=== PATIENT | female | born 1985 | race Asian ===

== ENCOUNTER 2023-12-26 08:00 | Outpatient (CLI) | payer MEDICAID, OTHER ==
[2023-12-26 16:58] LABS: BILIRUBIN,URINE NEGATIVE (NEGATIVE); GLUCOSE, URINE (UA) NEGATIVE (NEGATIVE); KETONES,URINE (UA) 15 mg/dL (NEGATIVE); LEUKOCYTE ESTERASE, URINE NEGATIVE (NEGATIVE); NITRITE,URINE NEGATIVE (NEGATIVE); OCCULT BLOOD,URINE MODERATE (NEGATIVE); PROTEIN,URINE NEGATIVE (NEGATIVE); UROBILINOGEN,URINE 0.2 (NORMAL) E.U./dL (NORMAL)
[2023-12-26 17:30] LABS: AMORPHOUS SEDIMENT,UR Few /LPF; BACTERIA,URINE None Seen /HPF (None Seen); CLARITY,URINE CLOUDY (CLEAR); SQUAMOUS EPITHELIAL CELL,UR FEW Squamous (<= Few); WBC,URINE 0-3 /HPF (0-5)
[2023-12-26 20:18] LABS: CHLAMYDIA TRACHOMATIS DNA NEGATIVE (NEGATIVE); NEISSERIA GONORRHOEAE DNA NEGATIVE (NEGATIVE); TRICHOMONAS VAGINALIS DNA NEGATIVE (NEGATIVE)
== END 2023-12-26 23:59 | disposition home or self-care (01) ==
LOC: LAB.WC 08:00
PROVIDERS: ATTEND Obstetrics & Gynecology
DX: Z34.80 Encounter for supervision of other normal pregnancy, unspecified trimester (principal); Z36.89 Encounter for other specified antenatal screening; Z3A.00 Weeks of gestation of pregnancy not specified
CPT/HCPCS: 81001; 87086; 87491; 87591; 87661

== ENCOUNTER 2024-01-18 07:09 | Outpatient (CLI) | payer MEDICAID ==
--- NOTE | 2024-01-18 16:17 | Ultrasound Report ---
PROCEDURE: OB Anatomy Scan INDICATIONS: SUPERVISON OF OUTSIDE/PRIOR DATING DATA: Last menstrual period (LMP): 08/25/2023. LMP-based estimated date of delivery (RAYSA): 05/31/2024. First dating scan (date and location): 01/18/2024. Estimated date of delivery (RAYSA) from first dating scan: 05/24/2024. TECHNIQUE: Real-time scanning was performed of the fetus, with image documentation and biometric measurements. Endovaginal scanning: Not performed. COMPARISON: None. FINDINGS: General: A single living intrauterine gestation is present. Presentation: Breech Placenta: Placental position is posterior/fundal, without previa. Amniotic fluid index: 13.9 cm, within normal limits for gestational age. heart rate: 150 beats per minute. Maternal cervical canal: 5.1 cm long; normal length is 2.5 cm or more. biometrics: Biparietal diameter: 5.2 cm, 21 weeks, 6 days, 86% Head circumference: 19.4 cm, 21 weeks, 4 days, 73% Abdominal circumference: 17.4 cm, 22 weeks, 2 days, 86% Femur length: 3.7 cm, 21 weeks, 6 days, 77% Estimated gestational age from initial scan: Not applicable Composite gestational age from present scan: 21 weeks, 6 days Estimated weight and percentile: 474.5 g, 96% Measurement variability in biometric dating: +/- 10 days from 12-20 weeks gestation, +/- 2 weeks from 20-30 weeks gestation, +/- 3 weeks at 30 weeks gestation or later. Anatomic survey: Neuro: Ventricles are normal at less than 10 mm. Cisterna magna is normal at 3-11 mm. Cerebellum i s normal in size and morphology. Nuchal skin fold: Normal at less than 6 mm between 14 and 20 weeks gestational age. Face: Nose and lips, facial profile are normal. Spine: The spine is not well visualized due to lie. Heart: 4-chambered heart is present, with normal ventricular outflow tracts. Diaphragm: Diaphragm is intact. Stomach: Left-sided stomach is present. Kidneys: No hydronephrosis. Normal is less than 5 mm in 2nd trimester, less than 7 mm in 3rd trimester. Cord: 3 vessel cord has orthotopic insertion. Bladder: Normal in size. Extremities: All 4 extremities are visualized. IMPRESSION: 1. Single live intrauterine gestation with a composite gestational age of 21 weeks, 6 days. 2. Estimated weight percentile is 96%. Developing macrosomia cannot be excluded. Please check d ates and consider close sonographic surveillance. 3. spine not well characterized. Short interval follow-up recommended. 4. No sonographic anatomic abnormalities visualized. Reviewed by: Maya Singh MD on 01/18/2024 4:16 PM PDT Approved by: Maya Singh MD on 01/18/2024 4:16 PM PDT Station ID: [id number]
== END 2024-01-18 07:10 | disposition home or self-care (01) ==
LOC: DI 07:09
PROVIDERS: ATTEND Obstetrics & Gynecology
DX: Z34.82 Encounter for supervision of other normal pregnancy, second trimester (principal); Z36.89 Encounter for other specified antenatal screening

== ENCOUNTER 2024-01-25 09:18 | Outpatient (CLI) | payer MEDICAID ==
[2024-01-25 10:34] LABS: BASOPHILS # (AUTO) 0.1 10^3/uL (0.0-0.1); BASOPHILS % (AUTO) 0.4 %; EOSINOPHILS # (AUTO) 0.4 10^3/uL (0.0-0.7); EOSINOPHILS % (AUTO) 2.7 %; HCT - HEMATOCRIT 33.9 % (37.0-47.0); HGB - HEMOGLOBIN 10.5 g/dL (12.0-16.0); LYMPHOCYTES # (AUTO) 1.8 10^3/uL (1.5-3.5); LYMPHOCYTES % (AUTO) 13.9 %; MEAN CORPUSCULAR HEMOGLOBIN 21.6 pg (27.0-31.0); MEAN CORPUSCULAR VOLUME 69.6 fL (81.0-99.0); MONOCYTES # (AUTO) 0.5 10^3/uL (0.0-1.0); MONOCYTES % (AUTO) 3.9 %; NEUTROPHILS # (AUTO) 10.1 10^3/uL (1.5-6.6); NEUTROPHILS % (AUTO) 78.1 %; PLT - PLATELET COUNT 188 10^3/uL (130-450); RED BLOOD COUNT 4.87 10^6/uL (4.20-5.40)
[2024-01-25 10:37] LABS: SLIDE REVIEW? Indicated
[2024-01-25 10:56] LABS: PLATELET ESTIMATE, MANUAL NORMAL (130-450,000) (NORMAL); PLATELET MORPHOLOGY NORMAL APPEARANCE (NORMAL); RBC MORPHOLOGY (MULTIPLE) 2+ MICROCYTOSIS (NORMAL)
[2024-01-26 05:14] LABS: HBsAG SCREEN Negative (Negative); HIV SCREEN 4TH GENERATION Non Reactive (Non Reactive)
[2024-01-26 08:10] LABS: RPR Non Reactive (Non Reactive)
[2024-01-26 10:44] LABS: VARICELLA-ZOSTER AB IGG 449 index (Immune >165)
[2024-01-26 23:09] LABS: HCV AB Non Reactive (Non Reactive)
== END 2024-01-25 09:19 | disposition home or self-care (01) ==
LOC: LAB 09:18
PROVIDERS: ATTEND Obstetrics & Gynecology
DX: Z34.80 Encounter for supervision of other normal pregnancy, unspecified trimester (principal); Z36.89 Encounter for other specified antenatal screening
CPT/HCPCS: 36415; 82565; 82950; 85025; 86592; 86762; 86787; 86803; 86850; 86900; 86901; 87340; 87389

== ENCOUNTER 2024-02-27 16:14 | Outpatient (CLI) | payer MEDICAID ==
--- NOTE | 2024-02-28 10:50 | Ultrasound Report ---
PROCEDURE: OB Follow up INDICATIONS: SUPERVISION OF OUTSIDE/PRIOR DATING DATA: Last menstrual period (LMP): 08/25/2023. LMP-based estimated date of delivery (RAYSA): 05/31/2024. First dating scan (date and location): 01/18/2024. Estimated date of delivery (RAYSA) from first dating scan: 05/24/2024. The below data below was generated using the ultrasound RAYSA of 05/24/2024 TECHNIQUE: Real-time scanning was performed of the fetus, with image documentation and biometric measurements. Endovaginal scanning: Not performed. COMPARISON: OB ultrasound 01/18/2024 FINDINGS: General: A single living intrauterine gestation is present. Presentation: Vertex Placenta: Placental position is posterior, without previa. Amniotic fluid index: 13.3 cm, within normal limits for gestational age. heart rate: 145 beats per minute. Maternal cervical canal: 4.7 cm long; normal length is 2.5 cm or more. biometrics: Biparietal diameter: 6.8 cm, 27 weeks 2 days, 29th percentile Head circumference: 26.2 cm, 28 weeks 4 days, 51st percentile Abdominal circumference: 24.2 cm, 28 weeks 3 days, 70th percentile Femur length: 5.6 cm, 29 weeks 3 days, 84th percentile Estimated gestational age from initial scan: 27 weeks 4 days Composite gestational age from present scan: 28 weeks 3 days Estimated weight and percentile: 1268 g, 81st percentile Measurement variability in biometric dating: +/- 10 days from 12-20 weeks gestation, +/- 2 weeks from 20-30 weeks gestation, +/- 3 weeks at 30 weeks gestation or more. Other: spine is better evaluated on the current exam and appears within normal limits without s igns of neural tube defect. IMPRESSION: 1.Single live intrauterine with appropriate interval growth. 2.Estimated weight is at the 81st percentile for ultrasound-based gestational age. 3.Normal appearance of the spine, which completes the anatomic survey. Reviewed by: Delfino Kwon MD on 02/28/2024 10:48 AM PDT Approved by: Delfino Kwon MD on 02/28/2024 10:48 AM PDT Station ID: [id number]
== END 2024-02-27 16:15 | disposition home or self-care (01) ==
LOC: DI 16:14
PROVIDERS: ATTEND Obstetrics & Gynecology
DX: O09.523 Supervision of elderly multigravida, third trimester (principal); Z3A.28 28 weeks gestation of pregnancy

== ENCOUNTER 2024-04-16 11:00 | Outpatient (CLI) | payer MEDICAID ==
[2024-04-16 11:15] LABS: HCT - HEMATOCRIT 33.6 % (37.0-47.0); HGB - HEMOGLOBIN 10.3 g/dL (12.0-16.0); MEAN CORPUSCULAR HEMOGLOBIN 21.3 pg (27.0-31.0); MEAN CORPUSCULAR HGB CONC 30.7 g/dL (32.0-36.0); MEAN CORPUSCULAR VOLUME 69.4 fL (81.0-99.0); PLT - PLATELET COUNT 193 10^3/uL (130-450); RED BLOOD COUNT 4.84 10^6/uL (4.20-5.40); RED CELL DISTRIBUTION WIDTH 15.1 % (12.0-15.0); WHITE BLOOD COUNT 10.7 x10^3/uL (4.8-10.8)
[2024-04-16 11:25] LABS: ALBUMIN 3.2 g/dL (3.2-5.5); ALBUMIN/GLOBULIN RATIO 1.1 (1.0-2.2); BILIRUBIN,TOTAL 0.3 mg/dL (0.2-1.0); CALCIUM 8.7 mg/dL (8.5-10.3); CREATININE 0.6 mg/dL (0.6-1.3); TOTAL PROTEIN 6.2 g/dL (6.4-8.9)
[2024-04-16 16:10] LABS: CREATININE,URINE 209.2 mg/dL; PROTEIN/CREATININE RATIO,URINE 0.1 (<=0.2)
== END 2024-04-16 11:01 | disposition home or self-care (01) ==
LOC: LAB 11:00
PROVIDERS: ATTEND Obstetrics & Gynecology
DX: R03.0 Elevated blood-pressure reading, without diagnosis of hypertension (principal)
CPT/HCPCS: 36415; 80053; 82570; 84156; 85027

== ENCOUNTER 2024-04-26 12:07 | Outpatient (CLI) | payer MEDICAID ==
--- NOTE | 2024-04-26 14:48 | Ultrasound Report ---
PROCEDURE: OB Follow up INDICATIONS: UTERINE SIZE DATE DISCREPANCY OUTSIDE/PRIOR DATING DATA: Last menstrual period (LMP): 08/25/2023. LMP-based estimated date of delivery (RAYSA): 05/31/2024. First dating scan (date and location): 01/18/2024. Estimated date of delivery (RAYSA) from first dating scan: 05/24/2024. The below data below was generated using the ultrasound RAYSA of 05/24/2024 TECHNIQUE: Real-time scanning was performed of the fetus, with image documentation and biometric measurements. Endovaginal scanning: Not performed. COMPARISON: 02/27/2024 FINDINGS: General: A single living intrauterine gestation is present. Presentation: Vertex Placenta: Placental position is posterior, without previa. Amniotic fluid index: 12.5 cm, 36th percentile for gestational age. heart rate: 144 beats per minute. Maternal cervical canal: 4.6 cm long; normal length is 2.5 cm or more. biometrics: Biparietal diameter: 8.61 cm, 34 weeks 5 days, 22.6 percentile Head circumference: 32.3 cm, 36 weeks 4 days, 31.9 percentile Abdominal circumference: 31.6 cm, 35 weeks 4 days, 46.8 percentile Femur length: 7.09 cm, 36 weeks 2 days, 54.6 percentile Estimated gestational age from initial scan: 36 weeks 0 days Composite gestational age from present scan: 35 weeks 6 days Estimated weight and percentile: 2763.8 g, 44.5 percentile Measurement variability in biometric dating: +/- 10 days from 12-20 weeks gestation, +/- 2 weeks from 20-30 weeks gestation, +/- 3 weeks at 30 weeks gestation or more. Other: Not applicable. IMPRESSION: Single living intrauterine at 36 weeks 0 days, RAYSA of 05/24/2024. Estimated weight of 2763.8 g, 44.5 percentile. SAAD of 12.5 cm. Reviewed by: Enrique Albright MD on 04/26/2024 2:46 PM PDT Approved by: Enrique Albright MD on 04/26/2024 2:46 PM PDT Station ID: [id number]
== END 2024-04-26 12:08 | disposition home or self-care (01) ==
LOC: DI 12:07
PROVIDERS: ATTEND Obstetrics & Gynecology
DX: O26.843 Uterine size-date discrepancy, third trimester (principal); Z3A.36 36 weeks gestation of pregnancy

== ENCOUNTER 2024-05-02 08:00 | Outpatient (CLI) | payer MEDICAID | END 2024-05-02 23:59 | disposition home or self-care (01) | LOC: LAB.WC 08:00 | PROVIDERS: ATTEND Obstetrics & Gynecology | DX: Z36.85 Encounter for antenatal screening for Streptococcus B (principal) | CPT/HCPCS: 87797 ==

== ENCOUNTER 2024-05-26 13:02 | Inpatient (IN) | payer MEDICAID ==
[2024-05-26] MEDS ORDERED: ONDANSETRON 4 MG/2 ML VIAL IVP PRN (13:45)
[2024-05-26] MEDS ORDERED: NIFEdipine 10 MG CAPSULE PO PRN (13:45)
[2024-05-26] MEDS ORDERED: hydrALAZINE INJ 20 MG/ML VIAL IVP PRN ×2 (13:45)
[2024-05-26] MEDS ORDERED: lidocaine 1% 20 ML MDV ID PRN (13:45)
[2024-05-26] MEDS ORDERED: TRANEXAMIC ACID IN NACL 1,000 MG/100 ML BAG IV PRN (13:45)
[2024-05-26] MEDS ORDERED: ONDANSETRON ODT 4 MG TABLET PO PRN (13:45)
[2024-05-26] MEDS ORDERED: miSOPROStoL 200 MCG TABLET PR PRN (13:45)
[2024-05-26] MEDS ORDERED: fentaNYL 100 MCG/2 ML VIAL IVP PRN (13:45)
[2024-05-26] MEDS ORDERED: OXYTOCIN 10 UNIT/ML VIAL IM PRN (13:45)
[2024-05-26] MEDS ORDERED: miSOPROStoL 200 MCG TABLET BC PRN (13:45)
[2024-05-26] MEDS ORDERED: SODIUM CHLORIDE FLUSH 0.9% 10 ML SYRINGE IVP PRN (13:45)
[2024-05-26] MEDS ORDERED: METHYLERGONOVINE 0.2 MG/ML VIAL IM PRN (13:45)
[2024-05-26] MEDS ORDERED: CALCIUM CARBONATE CHEW 500 MG TABLET PO PRN (13:45)
[2024-05-26] MEDS ORDERED: TERBUTALINE 1 MG/ML VIAL SUBQ PRN (13:45)
[2024-05-26] MEDS ORDERED: CARBOPROST TROMETHAMINE 250 MCG/ML VIAL IM PRN (13:45)
[2024-05-26] MEDS ORDERED: LABETALOL 20 MG/4 ML SYRINGE IVP PRN ×3 (13:45)
[2024-05-26] MEDS ORDERED: SODIUM CHLORIDE FLUSH 0.9% 10 ML SYRINGE IVP SCH (14:00)
[2024-05-26 14:30] LABS: BASOPHILS # (AUTO) 0.1 10^3/uL (0.0-0.1); BASOPHILS % (AUTO) 0.4 %; EOSINOPHILS # (AUTO) 0.2 10^3/uL (0.0-0.7); EOSINOPHILS % (AUTO) 1.2 %; HGB - HEMOGLOBIN 9.9 g/dL (12.0-16.0); LYMPHOCYTES # (AUTO) 1.7 10^3/uL (1.5-3.5); LYMPHOCYTES % (AUTO) 12.6 %; MEAN CORPUSCULAR HEMOGLOBIN 21.5 pg (27.0-31.0); MEAN CORPUSCULAR HGB CONC 30.9 g/dL (32.0-36.0); MEAN CORPUSCULAR VOLUME 69.6 fL (81.0-99.0); MONOCYTES # (AUTO) 0.8 10^3/uL (0.0-1.0); MONOCYTES % (AUTO) 5.6 %; NEUTROPHILS # (AUTO) 10.8 10^3/uL (1.5-6.6); NEUTROPHILS % (AUTO) 79.6 %; PLT - PLATELET COUNT 159 10^3/uL (130-450); RED CELL DISTRIBUTION WIDTH 15.5 % (12.0-15.0); WHITE BLOOD COUNT 13.5 x10^3/uL (4.8-10.8)
[2024-05-26 14:41] LABS: ALBUMIN 3.3 g/dL (3.2-5.5); ALBUMIN/GLOBULIN RATIO 1.4 (1.0-2.2); BILIRUBIN,TOTAL 0.2 mg/dL (0.2-1.0); CALCIUM 8.5 mg/dL (8.5-10.3); CREATININE 0.6 mg/dL (0.6-1.3); POTASSIUM 3.5 mmol/L (3.5-4.5); TOTAL PROTEIN 5.7 g/dL (6.4-8.9)
--- NOTE | 2024-05-26 15:18 | HISTORY & PHYSICAL EXAMINATION ---
Admit History - Visit Reason Visit Reason: Membranes rupture - Smoking Status: Never smoker - Other Maternal History Other Maternal History: HPI: Candi is a 39 yo at 39w2d who presents with SROM. She reports big gush of fluid around 11:50 AM while she was doing the dishes. [place] a pop and then a gush with + dark green staining. Reports after that she started having more painful contractions, but then they have since spaced out. Denies VB. Reports good FM. Denies ABRAHAM, vision changes, upper abdominal pain. Reports some LE swelling. She had a growth US 04/26, EFW 2763g, 44%tile, SAAD 12.5. flowsheet, copied from last visit in [place]: 39 yo LMP: 08/25/2023 RAYSA by LMP: 05/31/2024 US:12/25 bedside 18+4 Final RAYSA: 05/31/2024 - obese, prepreg BMI 38 - AMA. did not get on ASA - Mild range BPs x 2 @ 33wk - NSTs ordered to start at 37 weeks Anemia of . Taking iron Excessive weight gain in : -EFW ordered Pre- Weight: 205 BMI: 38.69 Blood type: A+ Antibody: Negative CBC: PLT 188 HCT 33.9 HGB 10.5 RUB: Immune VZV: Immune HBsAg: Negative HepC: NR RPR/AB-EIA: NR HIV: NR PAP: 06/2020 normal per pt GC/CT: negative HSV: denies Genetic testing: Did not have drawn Covid:Never Flu: no FAS: spine not well visualized; repeat normal. Placenta: posterior; no previa Cord: 3VC SAAD: WNL EFW: 474g 96%ile 50gm OGCT: EARLY 181( at 21wks); dexcom 3HR GTT: did 10 d of Dexcom and all normal but one. 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 Denies h/o HSV. Social Hx: Denies alcohol, tobacco, drug use during Family Hx: reviewed in record, noncontributory Allergies: sulfa, codeine Meds: PNV PE: VS reviewed Gen: NAD Chest: non labored respirations Abd: gravid, non tender, EFW 3600-3800g. 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: + meconium staining noted on peripad Ext: 1+ LE edema SVE: per RN exam in triage with gross meconium Bedside US performed, cephalic presentation confirmed monitoring: FHTs: 130s bpm baseline, + accel, small intermittent variable decelerations, mod variability [place]: q 6-8 min Cat 2, overall reassuring Labs: CMP reviewed, CBC pending A/P: 39 yo at 39w2d presenting with SROM with + meconium: - GBS neg - Rh+ - Rubella immune - Varicella immune - Desires sterilization - BMI 40 - Gestational anemia - AMA - Admit for labor management - Discussed repeat SVE around 5pm, consider pitocin augmentation if unchanged - Pain management per patient request, she is undecided about epidural - She confirmed desire today for permanent sterilization in the setting that delivery is required. [facility] consents were previously signed in clinic. Boni Camarillo MD - [facility] Current EDU 05/31/24 Gestation 39 Weeks and 2 Days 6 Vital Signs Temperature 98.3 F 05/26/24 13:12 Heart Rate 64 05/26/24 13:12 Respiratory Rate 16 05/26/24 13:12 Blood Pressure 138/76 H 05/26/24 13:12 Temperature 208.9 F H 05/26/24 14:10 Heart Rate 64 05/26/24 13:12 Respiratory Rate 16 05/26/24 13:12 Blood Pressure 138/76 H 05/26/24 13:12 O2 Saturation If not protocol: Oxygen Flow, liters/minute Physical - Abdominal Exam Vital Signs: Temp Pulse Resp BP Pulse Ox O2 Flow Rate 208.9 F H 64 16 138/76 H 05/26/24 14:10 05/26/24 13:12 05/26/24 13:12 05/26/24 13:12 Plan for Labor - Plan For Labor I expect patient to be DC'd or transferred within 96 hours.: Yes
[2024-05-26] MEDS ORDERED: ROPIVACAINE 0.2% 200 MG/100 ML BAG EP ONE (15:44)
[2024-05-26] MEDS ORDERED: LIDOCAINE 2%-EPI 1:100000 20 ML MDV ONE (15:44)
[2024-05-26 15:52] LABS: PLATELET ESTIMATE, MANUAL NORMAL (130-450,000) (NORMAL); PLATELET MORPHOLOGY NORMAL APPEARANCE (NORMAL); SLIDE REVIEW? Indicated
[2024-05-26] MEDS: LACTATED RINGERS 1,000 ML IV PRN (15:55)
[2024-05-26] MEDS ORDERED: SODIUM CHLORIDE 0.9% 10 ML VIAL IVP ONE (16:10)
[2024-05-26] MEDS ORDERED: fentaNYL 100 MCG/2 ML VIAL ONE (16:10)
[2024-05-26] MEDS ORDERED: LIDOCAINE-PF 2% 10 ML AMP SUBQ ONE (16:11)
[2024-05-26] MEDS ORDERED: ROPIVACAINE 0.2% 200 MG/100 ML BAG EP PRN (16:21)
[2024-05-26] MEDS ORDERED: NALOXONE 0.4 MG/ML VIAL IVP PRN (16:21)
[2024-05-26] MEDS ORDERED: ePHEDrine 50 MG/ML VIAL IVP PRN (16:21)
--- NOTE | 2024-05-26 16:21 | ANESTHESIA ---
Pre-Anesthesia VS, & Labs - Diagnosis active labor - Procedure vaginal delivery Vital Signs: Temp Pulse Resp BP Pulse Ox O2 Flow Rate 36.7 C 67 18 138/76 H 100 05/26/24 15:24 05/26/24 15:24 05/26/24 15:24 05/26/24 15:24 05/26/24 15:24 Height: 5 ft 3 in Weight (kg): 104.326 kg Body Mass Index: 40.7 BMI Classification: Morbidly Obese - NPO Last Fluid Intake: clear liquids - Is Patient ?: Yes - Lab Results Current Lab Results: Laboratory Tests 05/26/24 14:04: Sodium 136, Potassium 3.5, Chloride 107, Carbon Dioxide 20 L, Anion Gap 9.0, BUN 9, Creatinine 0.6, Estimated GFR (MDRD) 112, Glucose 106 H, Calcium 8.5, Total Bilirubin 0.2, AST 12, ALT 8 L, Alkaline Phosphatase 107, Total Protein 5.7 L, Albumin 3.3, Globulin 2.4, Albumin/Globulin Ratio 1.4 05/26/24 14:04: WBC 13.5 H, RBC 4.60, Hgb 9.9 L, Hct 32.0 L, MCV 69.6 L, MCH 21.5 L, MCHC 30.9 L, RDW 15.5 H, Plt Count 159, MPV TNP, Neut # (Auto) 10.8 H, Lymph # (Auto) 1.7, Morgan # (Auto) 0.8, Eos # (Auto) 0.2, Baso # (Auto) 0.1, Absolute Nucleated RBC 0.00, Nucleated RBC % 0.0, Manual Slide Review Indicated, Platelet Estimate NORMAL (130-450,000), Platelet Morphology NORMAL APPEARANCE, RBC Morph Micro Appear 1+ HYPOCHROMASIA 05/26/24 14:04: Blood Type A POSITIVE, Antibody Screen NEGATIVE Lab results reviewed: Yes Fish Bones: 05/26/24 14:04 05/26/24 14:04 Home Medications and Allergies Active Medications Acetaminophen (Acetaminophen 500 Mg Tablet) 1,000 mg PO Q8HR PRN PRN Reason: Mild Pain or Fever>38C(100.4F) Calcium Carbonate/Glycine (Calcium Carbonate Chew 500 Mg Tablet) 1,000 mg PO Q6HR PRN PRN Reason: Heartburn Carboprost Tromethamine (Carboprost Tromethamine 250 Mcg/Ml Vial) 250 mcg IM .ONCE PRN PRN Reason: Hemorrhage Fentanyl (Fentanyl 100 Mcg/2 Ml Vial) 50 mcg IVP Q1H PRN PRN Reason: Severe Pain (score 7-10) Hydralazine HCl (Hydralazine Inj 20 Mg/Ml Vial) 10 mg IVP .ONCE PRN; Protocol PRN Reason: SBP> or= 160 OR DBP> or= 110 Hydralazine HCl (Hydralazine Inj 20 Mg/Ml Vial) 5 - 10 mg IVP Q20M PRN; Protocol PRN Reason: SBP> or= 160 OR DBP> or= 110 Lactated Ringer's (Lr) 500 mls @ 999 mls/hr IV PRN PRN PRN Reason: Abdominal Pain Last Admin: 05/26/24 15:55 Dose: 125 mls/hr Oxytocin/Sodium Chloride (Pitocin/Sodium Chloride) 500 mls @ 999 mls/hr IV PRN PRN; Protocol PRN Reason: POST- HEMORR PREVENTION Tranexamic Acid (Tranexamic 1,000 Mg/100ml-Nacl) 1,000 mg in 100 mls @ 600 mls/hr IV Q30M PRN PRN Reason: EBL >1200mL and within 3hr Labetalol HCl (Labetalol 20 Mg/4 Ml Syringe) 20 mg IVP .ONCE PRN; Protocol PRN Reason: SBP> or= 160 OR DBP> or= 110 Labetalol HCl (Labetalol 20 Mg/4 Ml Syringe) 20 - 80 mg IVP Q10M PRN; Protocol PRN Reason: SBP> or= 160 OR DBP> or= 110 Labetalol HCl (Labetalol 20 Mg/4 Ml Syringe) 20 - 40 mg IVP Q10M PRN; Protocol PRN Reason: SBP> or= 160 OR DBP> or= 110 Lidocaine HCl (Lidocaine 1% 20 Ml Mdv) 20 ml ID .ONCE PRN PRN Reason: PERINEAL REPAIR Stop: 05/29/24 13:45 Methylergonovine Maleate (Methylergonovine 0.2 Mg/Ml Vial) 0.2 mg IM .ONCE PRN PRN Reason: Hemorrhage Misoprostol (Misoprostol 200 Mcg Tablet) 600 mcg BC .ONCE PRN PRN Reason: Hemorrhage Misoprostol (Misoprostol 200 Mcg Tablet) 800 mcg WA .ONCE PRN PRN Reason: Hemorrhage Nifedipine (Nifedipine 10 Mg Capsule) 10 - 20 mg PO Q20M PRN; Protocol PRN Reason: SBP> or= 160 OR DBP> or= 110 Ondansetron HCl (Ondansetron Odt 4 Mg Tablet) 4 mg PO Q4HR PRN PRN Reason: Nausea / Vomiting Ondansetron HCl (Ondansetron 4 Mg/2 Ml Vial) 4 mg IVP PRN PRN PRN Reason: Nausea / Vomiting Oxytocin (Oxytocin 10 Unit/Ml Vial) 10 unit IM .ONCE PRN PRN Reason: Step One if no IV access. Sodium Chloride (Sodium Chloride Flush 0.9% 10 Ml Syringe) 10 ml IVP Q8H GINGER Sodium Chloride (Sodium Chloride Flush 0.9% 10 Ml Syringe) 10 ml IVP PRN PRN PRN Reason: NEEDED PER PROVIDER ORDERS Terbutaline Sulfate (Terbutaline 1 Mg/Ml Vial) 0.25 mg SUBQ .ONCE PRN PRN Reason: Tachystole Allergies/Adverse Reactions: Allergies Allergy/AdvReac Type Severity Reaction Status Date / Time Sulfa (Sulfonamide Allergy Hives Verified 05/26/24 16:20 Antibiotics) Anes History & Medical History - Anesthetic History Anesthesia Complications: reports: No previous complications - Medical History Cardiovascular: reports: None Pulmonary: reports: None Gastrointestinal: reports: None Urinary: reports: None Neuro: reports: None Musculoskeletal: reports: None Endocrine/Autoimmune: reports: None Blood Disorders: reports: None Skin: reports: None Smoking Status: Never smoker Psychosocial: reports: No issues indicated History of Cancer?: No - Surgical History General: reports: Cholecystectomy Exam General: Alert, Oriented x3, Cooperative, No acute distress Dental: WNL Mouth Openin Fingerbreadth Neck Mobility: Normal Mallampati classification: III Thyromental Distance: 4-6 cm Mental/Cognitive Status: Alert/Oriented X3, Normal for patient Plan Anesthesia Type: Epidural Consent for Procedure(s) Verified and Reviewed: Yes Code Status: Attempt Resuscitation ASA classification: 2-Mild systemic disease Is this case an emergency?: No
[2024-05-26] MEDS: OXYTOCIN/SODIUM CHLORIDE 500 ML IV PRN (21:50)
[2024-05-26] MEDS ORDERED: oxyCODONE 5 MG TABLET PO PRN (22:06)
[2024-05-26] MEDS ORDERED: MAGNESIUM HYDROXIDE 2,400 MG/30 ML UDC PO PRN (22:06)
[2024-05-26] MEDS ORDERED: WITCH HAZEL/GLYCERIN 1 PAD TOP PRN (22:06)
[2024-05-26] MEDS ORDERED: diphenhydrAMINE 25 MG CAPSULE PO PRN (22:06)
[2024-05-26] MEDS ORDERED: HYDROCORTISONE 1% CREAM 28 GM TUBE PR PRN (22:06)
--- NOTE | 2024-05-26 22:27 | DELIVERY NOTE ---
Delivery Note - Infant Delivery Method Infant Delivery Method: positive: Spontaneous vaginal delivery - Presentation Presentation: positive: Vertex, [place] - right occiput anterior - Nuchal Cord Nuchal Cord: positive: Present - Anesthetic Anesthetic Type: - Amniotic Fluid Description Amniotic Fluid Description: positive: Moderate meconium - Episiotomy Type Episiotomy Type: positive: None - Laceration Laceration: positive: None - Delivery Outcome Delivery Outcome: positive: Livebirth - [place] : positive: Placed in direct skin contact with mother, Stimulated, Warmed - Placenta Placenta: positive: Intact, Spontaneous - Estimated Blood Loss Estimated Blood Loss (in cc): 50 - Post Delivery Events Post Delivery Events: positive: No post delivery events - Delivery Comments (Free Text/Narrative) Delivery Comments (Free Text/Narrative): I was called to the room for patient complete and ready to push. The anterior shoulder delivered easily with maternal effort and gentle downward pressure, followed by the remainder of the body. The was placed on Candi's chest. After 60 seconds, the cord was clamped and then cut by her partner. Cord blood was collected. Pitocin was started. The placenta was delivered intact. Good uterine tone and perineal hemostasis noted. Boni Camarillo MD
[2024-05-26] MEDS ORDERED: LACTATED RINGERS 1,000 ML IV SCH (23:00)
[2024-05-26] MEDS: IBUPROFEN 600 MG TABLET PO SCH (23:58)
[2024-05-27] MEDS ORDERED: LACTATED RINGERS 1,000 ML IV SCH (07:00)
--- NOTE | 2024-05-27 07:29 | PHARMACY PROGRESS NOTE ---
- Best Possible Medication History Admit Date and Time: 05/26/24 4372 Processed by: Pharmacy Medications reviewed in ED?: No Medication History completed: Yes Patient Interview: Pt unable to participate Secondary Source(s): Caregiver (CURRENT NURSE THAT HAS DISCUSSED MEDICATIONS WITH PATIENT), Physician records, Insurance records As the person ultimately responsible for medication therapy, providers are able to order a medication from an existing home medication list in [facility] via the "Reconcile Routine" prior to Confirmation of that medication by customer support analyst. Such practice is discouraged except when the physician, in their clinical judgment, deems that a medical need exists for a medication without regard to previous use.
[2024-05-27] MEDS: ACETAMINOPHEN 500 MG TABLET PO PRN (11:05)
[2024-05-27] MEDS: DOCUSATE SODIUM 100 MG CAPSULE PO SCH (11:05)
--- NOTE | 2024-05-27 17:22 | PROVIDER PROGRESS NOTE ---
Subjective - Prog Note Date Prog Note Date: 05/27/24 Prog Note Time: 17:19 - Subjective Subjective: S: She reports that she is feeling well Pain is well controlled with current medications. She is ambulating without difficulty. She is tolerating a normal diet. She is voiding without difficulty Lochia reported as light. Baby is at bedside, doing well. She is breast feeding. O: Vitals reviewed. GENERAL: NAD Resp: non-labored respirations ABDOMEN: Soft, non tender, fundus firm. EXT: 2+ LE edema. No evidence of DVT. A/P: PPD #1 sp , doing well. Continue routine care. Plan for discharge home tomorrow. Boni Tom MD Objective - Vital Signs/Intake & Output Vital Signs: Vital Signs x48h Temp Pulse Resp BP Pulse Ox 05/27/24 16:08 98.2 F 69 16 135/73 H 98 Intake & Output: Intake & Output 05/24/24 05/25/24 05/26/24 05/27/24 23:59 23:59 23:59 23:59 Intake Total 500 Output Total 200 Balance -200 500 - Lab Results Fish Bones: 05/26/24 14:04 05/26/24 14:04
--- NOTE | 2024-05-28 08:04 | Discharge Plan ---
Discharge Plan Problem Reviewed?: Yes Disposition: Home, Self Care Condition: Good Diet: Regular Activity Restrictions: Additional Comments Shower Restrictions: No Instruction Topics: Vaginal After, Depression No Smoking: If you smoke, Please STOP! Call for help. Follow-up with: Raza Cortez MD [Provider Admit Priv/Credential] -
--- NOTE | 2024-05-28 08:07 | DISCHARGE SUMMARY ---
Discharge Summary Admit Date: 05/26/24 Discharge Date: 05/28/24 Discharging Provider: Raza Cortez Code Status: Attempt Resuscitation Condition at Discharge: Good Discharge Disposition: 01 Home, Self Care - DIAGNOSES Admission Diagnoses: Term labor/SROM BMI 40 Advanced general age Discharge Diagnoses with Status of Each Condition: Term labor/SROM BMI 40 Advanced general age Status post spontaneous vaginal delivery Delivery outcome live aragon - HPI History of Present Illness: Subjective Patient reports she is doing well. Lochia appropriate. Denies heavy bleeding. Ambulating. Pelvic and abdominal pain well-controlled. Tolerating oral intake. Diet: Regular. Voiding without difficulty. Passing flatus. Denies BM. Patient is bonding with baby in room Breast feeding going well. Denies feeling lightheaded, dizzy or excessively fatigued. Control: Desires permanent sterility Objective General: Alert, oriented, no apparent distress. Cardiovascular: Regular rate. Regular rhythm. Lungs: No increased work of breathing. Abdomen: Uterus firm. Below umbilicus. No guarding or rebound. Extremities: No pain on palpation. No cords palpated. Distal pulses intact. - HOSPITAL COURSE Hospital Course: Patient was admitted at 39 weeks gestation with rupture of membranes. She was master every 6 to 8 minutes. She progressed on her own and had a spontaneous vaginal delivery with no lacerations. There was some meconium. course was uneventful. Patient and her were discharged in good condition on day 2. Plan for interval tubal ligation. - ALLERGIES Allergies/Adverse Reactions: Allergies Allergy/AdvReac Type Severity Reaction Status Date / Time Sulfa (Sulfonamide Allergy Hives Verified 05/26/24 16:20 Antibiotics) - MEDICATIONS Home Medications: Ambulatory Orders Medication Instructions Recorded Confirmed 168/Iron/Folic/Omega3 1 each PO DAILY 05/27/24 05/27/24 [One-A-Day -1 Softgel] - LABS Result Diagrams: 05/26/24 14:04 05/26/24 14:04 - FOLLOW UP Follow Up: With [facility] women's care in 1 to 2 weeks - TIME SPENT Time Spent in Discharge (Minutes): 20
[2024-05-28 11:45] VITALS: BP 146/87; O2SAT 98
--- NOTE | 2024-05-28 13:28 | Labor Flowsheet ---
Labor Flowsheet Datetime Report Generated by CPN: 05/28/2024 13:28 Datetime: 05/28/2024 11:43 VITAL SIGNS NBP Sys/Rhonda/Mean (mmHg): 146 : 87 : 99 Pulse: 77 Datetime: 05/28/2024 04:10 SpO2 (%): 98 Datetime: 05/27/2024 00:01 Stage of : Recovery PAIN Pain Scale: 0 Datetime: 05/26/2024 23:46 Respirations: 18 Datetime: 05/26/2024 22:41 Membranes Ruptured Date/Time: 05/26/2024 11:53 Membranes Rupture Method: Spontaneous Amniotic Fluid Color: Light Meconium Amniotic Fluid Amount: Moderate Amniotic Fluid Odor: Normal Datetime: 05/26/2024:51 Temperature (C): 36.6 Temperature Route: Oral Datetime: 05/26/2024 21:50 LaborFlag: Labor Datetime: 05/26/2024 21:45 Comments: viable delivery of baby girl Datetime: 05/26/2024 21:44 Patient Care Comments: pt pushing Datetime: 05/26/2024 21:40 Communication Comments: Provider at bedside Datetime: 05/26/2024 21:30 UTERINE ACTIVITY Monitor Mode: External Frequency (min): 1-2min Quality: Mild Duration (sec): 40-60sec Pattern: Normal: <= 5 Contractions in 10 Minutes Resting Tone (Palpate): Relaxed ASSESSMENT A Monitor Mode: Telemetry FHR Baseline Rate : 125 Variability: Moderate 6-25 bpm Accelerations: None Decelerations: Variable Category: Category II PATIENT CARE Oxygen Method: Room Air Datetime: 05/26/2024 21:27 VAGINAL EXAM Dilatation (cm): 10.0 Effacement (%): 100 Station: 0 Exam by: Zaida Datetime: 05/26/2024 20:48 Monitor Interventions for UA: [place] Adjusted Datetime: 05/26/2024 20:30 Contraction Comments: pt on side difficulty picking up ctx on toco Datetime: 05/26/2024 19:49 Patient Position/Activity: High Fowlers Datetime: 05/26/2024 19:41 Vaginal Bleeding: Normal Show Cervix, Consistency: Soft Cervix, Position: Midposition Datetime: 05/26/2024 18:15 COMMUNICATION Communication: RN Reviewed Strip Datetime: 05/26/2024 16:56 Vaginal Exam Comments: Patient consent obtained prior to SVE. Datetime: 05/26/2024 16:55 I/O Interventions: [place] Cath Inserted Datetime: 05/26/2024 16:00 Epidural Procedure: Loading Dose Datetime: 05/26/2024 15:47 PROCEDURE TIME OUT Procedure Verify: Correct Patient Identity; Correct Side and Site are Marked; Accurate Procedure Co nsent Form; Agreement on Procedure to be Done; Correct Patient Position; Relevant Images and Results are Properly Labeled and Displayed; Addressed Need to Administer Antibiotics or Fluids for Irrigation ; Safety Precautions Based on Patient History or Medication Use ANESTHESIA Anesthesia Plans: Epidural Datetime: 05/26/2024 14:53 Provider Notified (Name): Dr Camarillo
== END 2024-05-28 13:15 | disposition home or self-care (01) | DRG 807 ==
LOC: WFO 13:02 → FBP 13:03 → WFO 13:44 → FBP 13:45
PROVIDERS: ADMIT Obstetrics & Gynecology; ATTEND Obstetrics & Gynecology
PROC: 10E0XZZ Delivery of Products of Conception, External Approach (ICD-10-PCS; principal; 2024-05-26)
DX: O77.0 Labor and delivery complicated by meconium in amniotic fluid (principal); Z37.0 Single live birth; Z3A.39 39 weeks gestation of pregnancy; O26.03 Excessive weight gain in pregnancy, third trimester; O99.02 Anemia complicating childbirth; O99.214 Obesity complicating childbirth
CPT/HCPCS: 59409; 80053; 85025; 86850; 86900; 86901; 99215; A9270; J7120